=== PATIENT | female | born 1960 | race Caucasian/White ===

== ENCOUNTER → 2017-12-10 | Outpatient (CLI) | payer BC ==
[~2017-12-10] MED LIST: ATORVASTATIN; CYMBALTA 20MG20 MG PO; DESYREL 50MG50 MG PO; DIOVAN; ESCITALOPRAM; FLEXERIL 1010 MG/TAB PO; LORTAB 5/500 501 TAB PO; NORCO 325 MG-51 TAB PO; TOPROL; [UNRECOGNIZED DRUG - OTHER]
== END ==
LOC: MC.RAD 11:18
DX: Z12.31 Encounter for screening mammogram for malignant neoplasm of breast (principal); N63.10 Unspecified lump in the right breast, unspecified quadrant

== ENCOUNTER → 2017-12-17 | Outpatient (CLI) | payer BC | LOC: MC.RAD 09:54 | DX: N63.10 Unspecified lump in the right breast, unspecified quadrant (principal) ==

== ENCOUNTER → 2018-09-11 | Outpatient (CLI) | payer BC | LOC: MC.RAD 09:30 | DX: N63.10 Unspecified lump in the right breast, unspecified quadrant (principal) | CPT/HCPCS: G0279 ==

== ENCOUNTER → 2021-11-29 | Outpatient (CLI) | payer BC | LOC: MC.RAD 10-09 09:30 | DX: Z12.31 Encounter for screening mammogram for malignant neoplasm of breast (principal) ==